=== PATIENT | male | born 1945 | race Two or more races ===

== ENCOUNTER 2021-11-28 10:00 | Inpatient (IN) | payer OTHER ==
[~2021-11-28] VITALS: Ht 160 cm; Wt 59.0 kg
== END 2021-12-01 13:44 | disposition home or self-care (01) | DRG 334 ==
LOC: SURH 10:00 → O/R 11-30 05:30 → SURH 11-30 10:00
PROVIDERS: ADMIT Surgery; ATTEND Surgery
PROC: 0DJD8ZZ Inspection of Lower Intestinal Tract, Via Natural or Artificial Opening Endoscopic (ICD-10-PCS; 2021-11-30)
PROC: 0DBP4ZZ Excision of Rectum, Percutaneous Endoscopic Approach (ICD-10-PCS; principal; 2021-11-30 10:00)
DX: D12.8 Benign neoplasm of rectum (principal); Z20.822 Contact with and (suspected) exposure to COVID-19

== ENCOUNTER 2023-07-24 09:00 | Inpatient (IN) | payer OTHER ==
[~2023-07-24] VITALS: Ht 175.3 cm; Wt 59.9 kg
[2023-07-24] MEDS ORDERED: MEDROLPACK PO (14:12)
[2023-07-24] MEDS ORDERED: TUSSIN DM CLEA118 M1 PO (14:12)
[2023-08-01 19:25] LABS: HEMATOCRIT 36.7 % (39.0-48.0); HEMOGLOBIN 12.5 g/dL (13-16.00); MEAN CELL VOLUME 86.4 fL (80.0-100.00); MEAN CORPUSCULAR HEMOGLOBIN 29.4 pg (27.00-32.0); PLATELET COUNT 393 K/uL (150-450); RED BLOOD COUNT 4.25 M/uL (4.00-6.00); RED CELL DISTRIBUTION WIDTH 13.3 % (11.5-14.5)
[2023-08-01 19:28] LABS: ALBUMIN 2.5 gm/dL (3.4-5.0); CALCIUM 8.5 mg/dL (8.5-10.1); GFR 71.9; MAGNESIUM 1.9 mg/dL (1.8-2.4); POTASSIUM 4.29 mEq/L (3.5-5.1)
[2023-08-02 08:13] LABS: ALBUMIN 2.2 gm/dL (3.4-5.0); CREATININE SERUM 0.92 mg/dL (0.70-1.30); GFR 79.16; MAGNESIUM 1.8 mg/dL (1.8-2.4); PHOSPHOROUS 3.4 mg/dL (2.5-4.9); POTASSIUM 4.33 mEq/L (3.5-5.1)
[2023-08-02 09:04] LABS: HEMATOCRIT 31.7 % (39.0-48.0); HEMOGLOBIN 10.9 g/dL (13-16.00); MEAN CELL VOLUME 85.9 fL (80.0-100.00); MEAN CORPUSCULAR HEMOGLOBIN 29.6 pg (27.00-32.0); MEAN CORPUSCULAR HGB CONC 34.5 g/dl (32.0-36.0); PLATELET COUNT 365 K/uL (150-450); RED BLOOD COUNT 3.69 M/uL (4.00-6.00); RED CELL DISTRIBUTION WIDTH 13.4 % (11.5-14.5)
== END 2023-08-02 15:07 | disposition home or self-care (01) | DRG 349 ==
LOC: SURG 08-01 07:00 → O/R 08-01 07:21 → SURG 08-01 09:00 → SURH 08-01 18:03
PROVIDERS: ADMIT Surgery; ATTEND Surgery
PROC: 0DBP7ZZ Excision of Rectum, Via Natural or Artificial Opening (ICD-10-PCS; principal; 2023-08-01 07:00)
DX: D12.8 Benign neoplasm of rectum (principal); Z20.822 Contact with and (suspected) exposure to COVID-19
CPT/HCPCS: 45123; 0184T